=== PATIENT | male | born 1990 | race Caucasian/White ===

== ENCOUNTER 2018-02-04 16:40 | Emergency (ER) | payer OTHER ==
[~2018-02-04] VITALS: Ht 172.7 cm; Wt 61.4 kg
[~2018-02-04 16:40] MED LIST: NOCURR
[2018-02-04] MEDS ORDERED: BICT1TAB PO (17:31)
[2018-02-04] MEDS ORDERED: KETOROLAC TROMETHAMINE 60 MG/2 ML VIAL IM ONE (18:30)
[2018-02-04] MEDS ORDERED: TraMADol HCL 50 MG TABLET PO ONE (18:30)
[2018-02-04 20:32] VITALS: BP 121/78
== END 2018-02-04 21:09 | disposition home or self-care (01) ==
LOC: EMS 16:41
DX: S50.01XA Contusion of right elbow, initial encounter (principal); S09.90XA Unspecified injury of head, initial encounter; F17.210 Nicotine dependence, cigarettes, uncomplicated; F12.90 Cannabis use, unspecified, uncomplicated; V00.131A Fall from skateboard, initial encounter; Y93.51 Activity, roller skating (inline) and skateboarding; Y92.89 Other specified places as the place of occurrence of the external cause; Y99.8 Other external cause status
CPT/HCPCS: 29105; 70450; 73080; 73090; 96372; 99284; 99406; J1885